=== PATIENT | male | born 1985 | race Caucasian/White ===

== ENCOUNTER 2018-02-27 08:23 | Outpatient (CLI) | payer OTHER ==
[~2018-02-27 08:23] MED LIST: COZAAR100 MG; INTESTINEX1 CAP PO; PREVACID30 MG PO
== END 2018-02-27 15:31 | disposition home or self-care (01) ==
LOC: NUCLEAR 08:23
DX: R00.0 Tachycardia, unspecified (principal); E66.01 Morbid (severe) obesity due to excess calories

== ENCOUNTER 2018-02-27 09:47 | Outpatient (CLI) | payer OTHER | END 2018-02-27 10:09 | disposition home or self-care (01) | LOC: LAB 09:47 | DX: E66.01 Morbid (severe) obesity due to excess calories (principal); R00.0 Tachycardia, unspecified; D68.8 Other specified coagulation defects; R10.13 Epigastric pain; R73.9 Hyperglycemia, unspecified; E56.9 Vitamin deficiency, unspecified; I10 Essential (primary) hypertension ==

== ENCOUNTER 2018-02-27 11:09 | Outpatient (CLI) | payer OTHER | END 2018-02-27 11:12 | disposition home or self-care (01) | LOC: SONOGRAMA 11:09 | DX: R10.31 Right lower quadrant pain (principal); E66.01 Morbid (severe) obesity due to excess calories ==

== ENCOUNTER 2018-03-08 07:40 | Outpatient (CLI) | payer OTHER | END 2018-03-08 07:55 | disposition home or self-care (01) | LOC: RX STUDY 07:40 | DX: R10.13 Epigastric pain (principal); K21.9 Gastro-esophageal reflux disease without esophagitis ==

== ENCOUNTER 2018-04-05 10:30 | Day surgery (SDC) | payer OTHER | END 2018-04-05 13:35 | disposition home or self-care (01) | LOC: AMB-ENDOS 10:30 | DX: D13.1 Benign neoplasm of stomach (principal) ==

== ENCOUNTER 2019-02-25 10:57 | Emergency (ER) | payer OTHER ==
[~2019-02-25] VITALS: Ht 177.8 cm; Wt 209.6 kg
== END 2019-02-25 15:09 | disposition home or self-care (01) ==
LOC: ER 10:57
DX: S50.12XA Contusion of left forearm, initial encounter (principal); W18.39XA Other fall on same level, initial encounter; Y93.89 Activity, other specified; Y92.488 Other paved roadways as the place of occurrence of the external cause; Y99.8 Other external cause status

== ENCOUNTER 2020-06-15 07:00 | Outpatient (CLI) | payer OTHER | END 2020-06-15 07:17 | disposition home or self-care (01) | LOC: LAB 07:00 | PROVIDERS: ATTEND Surgery | DX: K76.0 Fatty (change of) liver, not elsewhere classified (principal); G11.8 Other hereditary ataxias; I10 Essential (primary) hypertension ==

== ENCOUNTER 2020-06-15 07:42 | Outpatient (CLI) | payer OTHER | END 2020-06-15 10:49 | disposition home or self-care (01) | LOC: SONOGRAMA 07:42 | PROVIDERS: ATTEND Surgery | DX: I10 Essential (primary) hypertension (principal); K76.0 Fatty (change of) liver, not elsewhere classified; E66.09 Other obesity due to excess calories ==

== ENCOUNTER 2025-02-06 00:45 | Inpatient (IN) | payer OTHER ==
[~2025-02-06] VITALS: Ht 172.7 cm; Wt 74.8 kg
--- NOTE | 2025-02-06 01:08 | NUR ---
PACIENTE MASCULINO ALERTA Y ORIENTADO X3, REFIERE JACIEL Y RANJIT DOLOR ABDOMINAL LE COMENZO EL SANTIAGO DE DONG A LAS 10 DE LA NOCHE.
[2025-02-06] MEDS ORDERED: FAMOTIDINE/PF 20 MG/2 ML VIAL IV PUSH STA (02:14)
[2025-02-06] MEDS ORDERED: PROMETHAZINE HCL 50 MG/ML AMPUL IM STA (02:14)
[2025-02-06] MEDS ORDERED: RINGERS SOLUTION,LACTATED 1,000 ML IV ONE (02:15)
[2025-02-06] MEDS ORDERED: HYOSCYAMINE SULFATE 0.125 MG TAB.SUBL SL STA (02:15)
[2025-02-06] MEDS ORDERED: HYOSCYAMINE SULFATE 0.125 MG TAB.SUBL ONE (02:18)
[2025-02-06] MEDS ORDERED: PROMETHAZINE HCL 50 MG/ML AMPUL IM ONE (02:18)
[2025-02-06] MEDS ORDERED: FAMOTIDINE/PF 20 MG/2 ML VIAL ONE (02:19)
--- NOTE | 2025-02-06 02:35 | NUR ---
PTE ALERTA Y ORIENTADO X3. SE REALIZAN MUESTRAS DE LAB R[place] ORDEN MEDICA Y BAJO MEDIDAS ASEPTICAS. SE ADMINISTRA MEDICAMENTO R[place] ORDEN MEDICA Y BAJO MEDIDAS ASEPTICAS POR JOSS DIAZ.
[2025-02-06 03:06] LABS: HEMATOCRIT 30.4 % (39.0-48.0); HEMOGLOBIN 10.4 g/dL (13-16.00); MEAN CELL VOLUME 90.7 fL (80.0-100.00); MEAN CORPUSCULAR HGB CONC 34.1 g/dl (32.0-36.0); PLATELET COUNT 182 K/uL (150-450); RED BLOOD COUNT 3.36 M/uL (4.00-6.00); RED CELL DISTRIBUTION WIDTH 13.6 % (11.5-14.5)
[2025-02-06 03:24] LABS: INR 1.05; PARTIAL THROMBOPLASTIN TIME 27.9 SECONDS (22.0-34.0); PROTHROMBIN TIME 11.4 SECONDS (9.0-11.5)
[2025-02-06 03:53] LABS: ALBUMIN 2.8 gm/dL (3.4-5.0); BILIRUBIN TOTAL 0.7 mg/dL (0.3-1.2); BILIRUBIN,CONJUGATED 0.29 mg/dL (0.0-0.2); BILIRUBIN,UNCONJUGATED 0.41 mg/dL (0.0-0.6); CALCIUM 7.4 mg/dL (8.5-10.1); CREATININE SERUM 0.49 mg/dL (0.70-1.30); GFR 188.51; GLOBULINA 3.1 G/DL (2.4-3.5); POTASSIUM 3.26 mEq/L (3.5-5.1); TOTAL PROTEIN 5.9 gm/dL (6.4-8.2)
[2025-02-06 06:01] LABS: URINE APPEARANCE Clear; URINE BILIRRUBIN Negative (NEGATIVE); URINE BLOOD Negative; URINE COLOR Dark Yellow; URINE GLUCOSE Negative (NEGATIVE); URINE KETONE Negative (NEGATIVE); URINE LEUKOCYTE Negative; URINE NITRATE Negative; URINE PROTEIN Negative (NEGATIVE)
[2025-02-06 06:05] LABS: URINE BACTERIA 75.8 uL (0.0-1933); URINE EPITHELIAL CELLS 7.4 uL (0.0-38.8); URINE RBC 2.6 uL (0.0-20.8); URINE WBC 16.5 uL (0.0-23.2)
[2025-02-06 06:38] LABS: URINE CAST 0.29 uL (0.0-1.40)
[2025-02-06] MEDS ORDERED: MORPHINE SULFATE 4 MG/ML VIAL IV ONE ×2 (11:15→21:50)
[2025-02-06 16:29] LABS: COVID-19 AG NEGATIVE (NEGATIVE)
[2025-02-06] MEDS ORDERED: 0.9 % SODIUM CHLORIDE 1,000 ML IV SCH ×2 (17:15→22:30)
[2025-02-06] MEDS ORDERED: POTASSIUM CHLORIDE 20MEQ/100ML H2O PB IV ONE ×2 (17:15→17:37)
[2025-02-06] MEDS ORDERED: ACETAMINOPHEN 500 MG GEL..CAP PO PRN (17:15)
[2025-02-06] MEDS ORDERED: MORPHINE SULFATE 4 MG/ML CARTRIDGE IV PRN (17:15)
[2025-02-06] MEDS ORDERED: ONDANSETRON HCL 4 MG in 0.9 % SODIUM CHLORIDE 50 ML IV PRN (17:15)
[2025-02-06] MEDS ORDERED: PIPERACILLIN/TAZOBACTAM SODIUM 3.375 GM VIAL IV ONE (17:58)
[2025-02-06] MEDS ORDERED: PIPERACILLIN/TAZOBACTAM SODIUM 3.375 GM in DEXTROSE 5 % IN WATER 100 ML IV SCH (18:00)
[2025-02-06] MEDS ORDERED: ISOPROPYL ALCOHOL 30 ML OUNCE TOP ONE (18:45)
[2025-02-06] MEDS ORDERED: BUPIVACAINE HCL/Mpf 0.5% 10ML VIAL ONE (21:09)
[2025-02-06] MEDS ORDERED: OxyCODONE HCL/APAP UD (PERCOCET) PO PRN (22:15)
[2025-02-06 22:42] VITALS: BP 135/76; O2SAT 95
[2025-02-06 22:46] VITALS: BP 135/76
[2025-02-07] VITALS: BP 138/84; O2SAT 96
[2025-02-07 08:00] VITALS: BP 130/86; O2SAT 96
[2025-02-07] MEDS ORDERED: OxyCODONE HCL 5 MG TABLET (ROXICODONE) PO PRN (08:00)
[2025-02-07 08:19] LABS: HEMATOCRIT 43.3 % (39.0-48.0); HEMOGLOBIN 14.8 g/dL (13-16.00); MEAN CELL VOLUME 88.8 fL (80.0-100.00); MEAN CORPUSCULAR HEMOGLOBIN 30.4 pg (27.00-32.0); MEAN CORPUSCULAR HGB CONC 34.2 g/dl (32.0-36.0); PLATELET COUNT 241 K/uL (150-450); RED BLOOD COUNT 4.88 M/uL (4.00-6.00); RED CELL DISTRIBUTION WIDTH 14.2 % (11.5-14.5)
[2025-02-07] MEDS ORDERED: FAMOTIDINE/PF 20 MG in 0.9 % SODIUM CHLORIDE 8 ML IV PUSH SCH (09:00)
[2025-02-07] MEDS ORDERED: ORPHENADRINE CITRATE 30 MG/ML AMPUL IV SCH (09:00)
[2025-02-07 09:15] LABS: CALCIUM 9.4 mg/dL (8.5-10.1); CREATININE SERUM 0.93 mg/dL (0.70-1.30); GFR 89.99; POTASSIUM 4.45 mEq/L (3.5-5.1)
[2025-02-07 17:28] VITALS: BP 141/83; O2SAT 95
[2025-02-08 01:53] VITALS: BP 147/73; O2SAT 100
[2025-02-08 08:00] VITALS: BP 132/76; O2SAT 96
[2025-02-08 09:26] LABS: HEMATOCRIT 40.7 % (39.0-48.0); HEMOGLOBIN 13.7 g/dL (13-16.00); MEAN CELL VOLUME 90.3 fL (80.0-100.00); MEAN CORPUSCULAR HEMOGLOBIN 30.3 pg (27.00-32.0); MEAN CORPUSCULAR HGB CONC 33.6 g/dl (32.0-36.0); PLATELET COUNT 233 K/uL (150-450); RED BLOOD COUNT 4.51 M/uL (4.00-6.00); RED CELL DISTRIBUTION WIDTH 14.1 % (11.5-14.5)
[2025-02-08 09:39] LABS: ALBUMIN 3.1 gm/dL (3.4-5.0); CALCIUM 9.2 mg/dL (8.5-10.1); CREATININE SERUM 0.86 mg/dL (0.70-1.30); GFR 98.49; GLOBULINA 3.8 G/DL (2.4-3.5); POTASSIUM 4.26 mEq/L (3.5-5.1); TOTAL PROTEIN 6.9 gm/dL (6.4-8.2)
[2025-02-08 09:59] LABS: BILIRUBIN TOTAL 6.12 mg/dL (0.3-1.2)
[2025-02-08 16:00] VITALS: BP 142/89; O2SAT 98
[2025-02-09 07:45] LABS: HEMATOCRIT 37.4 % (39.0-48.0); HEMOGLOBIN 12.7 g/dL (13-16.00); MEAN CELL VOLUME 90.1 fL (80.0-100.00); MEAN CORPUSCULAR HEMOGLOBIN 30.7 pg (27.00-32.0); PLATELET COUNT 196 K/uL (150-450); RED BLOOD COUNT 4.15 M/uL (4.00-6.00); RED CELL DISTRIBUTION WIDTH 13.7 % (11.5-14.5)
[2025-02-09 08:00] VITALS: BP 127/77; O2SAT 97
[2025-02-09 08:00] LABS: BILIRUBIN TOTAL 2.52 mg/dL (0.3-1.2); BILIRUBIN,CONJUGATED 1.11 mg/dL (0.0-0.2); BILIRUBIN,UNCONJUGATED 1.41 mg/dL (0.0-0.6)
[2025-02-09] MEDS ORDERED: GUAIFENESIN 200 MG/10 ML BLIST.PACK PO SCH (08:00)
[2025-02-09 08:03] LABS: ALBUMIN 2.8 gm/dL (3.4-5.0); BILIRUBIN TOTAL 2.61 mg/dL (0.3-1.2); CALCIUM 8.8 mg/dL (8.5-10.1); CREATININE SERUM 0.54 mg/dL (0.70-1.30); GFR 168.51; GLOBULINA 3.6 G/DL (2.4-3.5); POTASSIUM 3.76 mEq/L (3.5-5.1); TOTAL PROTEIN 6.4 gm/dL (6.4-8.2)
[2025-02-09] MEDS ORDERED: IPRATROPIUM BROMIDE 0.5 MG/2.5 ML AMPUL.NEB IH SCH (09:00)
[2025-02-09 16:30] VITALS: BP 133/86; O2SAT 100
[2025-02-09 23:43] VITALS: BP 107/71; O2SAT 99
[2025-02-10 07:15] LABS: HEMATOCRIT 35.4 % (39.0-48.0); HEMOGLOBIN 12.2 g/dL (13-16.00); MEAN CELL VOLUME 89.1 fL (80.0-100.00); MEAN CORPUSCULAR HEMOGLOBIN 30.7 pg (27.00-32.0); MEAN CORPUSCULAR HGB CONC 34.4 g/dl (32.0-36.0); PLATELET COUNT 192 K/uL (150-450); RED BLOOD COUNT 3.97 M/uL (4.00-6.00); RED CELL DISTRIBUTION WIDTH 13.6 % (11.5-14.5)
[2025-02-10 08:07] LABS: ALBUMIN 2.6 gm/dL (3.4-5.0); BILIRUBIN TOTAL 1.7 mg/dL (0.3-1.2); CALCIUM 8.7 mg/dL (8.5-10.1); CREATININE SERUM 0.51 mg/dL (0.70-1.30); GLOBULINA 3.5 G/DL (2.4-3.5); POTASSIUM 3.72 mEq/L (3.5-5.1); TOTAL PROTEIN 6.1 gm/dL (6.4-8.2)
[2025-02-10 12:48] VITALS: BP 145/89
[2025-02-10 16:44] VITALS: BP 144/73; O2SAT 100
[2025-02-11 00:46] VITALS: BP 118/69; O2SAT 96
[2025-02-11 07:01] LABS: HEMATOCRIT 34.6 % (39.0-48.0); HEMOGLOBIN 11.6 g/dL (13-16.00); MEAN CELL VOLUME 90.6 fL (80.0-100.00); MEAN CORPUSCULAR HEMOGLOBIN 30.5 pg (27.00-32.0); MEAN CORPUSCULAR HGB CONC 33.6 g/dl (32.0-36.0); PLATELET COUNT 203 K/uL (150-450); RED BLOOD COUNT 3.82 M/uL (4.00-6.00); RED CELL DISTRIBUTION WIDTH 13.7 % (11.5-14.5)
[2025-02-11 07:48] LABS: ALBUMIN 2.6 gm/dL (3.4-5.0); BILIRUBIN TOTAL 1.38 mg/dL (0.3-1.2); CALCIUM 8.6 mg/dL (8.5-10.1); CREATININE SERUM 0.56 mg/dL (0.70-1.30); GFR 161.59; GLOBULINA 3.6 G/DL (2.4-3.5); POTASSIUM 4.09 mEq/L (3.5-5.1); TOTAL PROTEIN 6.2 gm/dL (6.4-8.2)
[2025-02-11 08:00] VITALS: BP 132/80; O2SAT 96
[2025-02-11] MEDS ORDERED: SODIUM CL 0.9% 50 ML IV.SOLN IV ONE (11:57)
[2025-02-11 16:00] VITALS: BP 131/82; O2SAT 98
[2025-02-12 01:04] VITALS: BP 125/78; O2SAT 100
[2025-02-12 06:51] LABS: HEMOGLOBIN 11.9 g/dL (13-16.00); MEAN CELL VOLUME 89.2 fL (80.0-100.00); MEAN CORPUSCULAR HEMOGLOBIN 31.1 pg (27.00-32.0); MEAN CORPUSCULAR HGB CONC 34.9 g/dl (32.0-36.0); PLATELET COUNT 210 K/uL (150-450); RED BLOOD COUNT 3.82 M/uL (4.00-6.00); RED CELL DISTRIBUTION WIDTH 13.6 % (11.5-14.5)
[2025-02-12 07:20] LABS: ALBUMIN 2.7 gm/dL (3.4-5.0); BILIRUBIN TOTAL 1.23 mg/dL (0.3-1.2); CALCIUM 8.6 mg/dL (8.5-10.1); CREATININE SERUM 0.54 mg/dL (0.70-1.30); GFR 168.51; GLOBULINA 3.5 G/DL (2.4-3.5); POTASSIUM 4.02 mEq/L (3.5-5.1); TOTAL PROTEIN 6.2 gm/dL (6.4-8.2)
[2025-02-12 08:00] VITALS: BP 129/84; O2SAT 96
== END 2025-02-12 15:13 | disposition home or self-care (01) | DRG 419 ==
LOC: ER 00:46 → SURG 17:24 → SEC-K 17:24 → SURG 20:17
PROVIDERS: General Practice; Internal Medicine; Student in an Organized Health Care Education/Training Program; Surgery; ADMIT Internal Medicine; ATTEND Internal Medicine
PROC: BW40ZZZ Ultrasonography of Abdomen (ICD-10-PCS; 2025-02-06)
PROC: 0FT44ZZ Resection of Gallbladder, Percutaneous Endoscopic Approach (ICD-10-PCS; principal; 2025-02-07)
PROC: 0WQF4ZZ Repair Abdominal Wall, Percutaneous Endoscopic Approach (ICD-10-PCS; 2025-02-07)
PROC: BF37ZZZ Magnetic Resonance Imaging (MRI) of Pancreas (ICD-10-PCS; 2025-02-10)
PROC: 3E0F7GC Introduction of Other Therapeutic Substance into Respiratory Tract, Via Natural or Artificial Opening (ICD-10-PCS; 2025-02-10)
DX: K80.00 Calculus of gallbladder with acute cholecystitis without obstruction (principal); K43.9 Ventral hernia without obstruction or gangrene